=== PATIENT | female | born 1980 | race Caucasian/White ===

== ENCOUNTER → 2016-04-24 | Outpatient (CLI) | payer OTHER ==
[~2016-04-24] MED LIST: PERC5TAB6 PO
[2016-04-24 11:58] LABS: MEAN CORPUSCULAR HEMOGLOBIN 30.4 pg (27.0-33.0); MEAN CORPUSCULAR HGB CONC 35.7 g/dl (32.0-36.5); MEAN CORPUSCULAR VOLUME 85.2 fl (80.0-96.0); RED CELL DISTRIBUTION WIDTH 12.4 % (11.5-14.5); WHITE BLOOD COUNT 7.1 K/mm3 (4.0-10.0)
[2016-04-24 12:06] LABS: ALT/SGPT 14 U/L (12-78); AST/SGOT 18 U/L (15-37); BILIRUBIN,TOTAL 0.5 MG/DL (0.2-1.0); CREATININE FOR GFR 0.77 MG/DL (0.55-1.02); GLOMERULAR FILTRATION RATE > 60.0 (>60); URIC ACID 4.4 MG/DL (2.6-6.0)
== END ==
LOC: M SMT 08:35
PROVIDERS: ATTEND Obstetrics & Gynecology
DX: O16.3 Unspecified maternal hypertension, third trimester (principal); Z3A.00 Weeks of gestation of pregnancy not specified

== ENCOUNTER 2016-05-02 00:15 | Inpatient (IN) | payer OTHER ==
[2016-05-02] VITALS (9 sets, daily range): BP systolic 123–151; BP diastolic 74–97
[~2016-05-02] VITALS: Ht 167.6 cm; Wt 79.0 kg
[2016-05-02] MEDS ORDERED: LR 1,000 ML IV SCH (00:53)
[2016-05-02] MEDS ORDERED: LACTATED RINGER'S 1000 ML IV STA (00:53)
[2016-05-02] MEDS ORDERED: OXYTOCIN 30 UNITS IN 0.9% NaCl 500ML IV BAG (J2590) As Ordered ONE (01:14)
[2016-05-02 01:23] LABS: MEAN CORPUSCULAR HGB CONC 35.3 g/dl (32.0-36.5); MEAN CORPUSCULAR VOLUME 84.9 fl (80.0-96.0); RED CELL DISTRIBUTION WIDTH 13.1 % (11.5-14.5); WHITE BLOOD COUNT 10.6 K/mm3 (4.0-10.0)
[2016-05-02 01:42] LABS: ALT/SGPT 14 U/L (12-78); AST/SGOT 18 U/L (15-37); BILIRUBIN,TOTAL 0.5 MG/DL (0.2-1.0); CREATININE FOR GFR 0.77 MG/DL (0.55-1.02); GLOMERULAR FILTRATION RATE > 60.0 (>60); URIC ACID 4.7 MG/DL (2.6-6.0)
[2016-05-02] MEDS ORDERED: OXYTOCIN DRIP 30 UNITS in APPROPRIATE DILUENT 1 EA IV SCH (02:18)
[2016-05-02] MEDS ORDERED: LIDOCAINE 1% MDV INJ 50 ML VIAL SC ONE (02:30)
[2016-05-02] MEDS ORDERED: DOCUSATE SODIUM 100 MG CAP PO PRN (02:30)
[2016-05-02] MEDS ORDERED: MEASLES,MUMPS,RUBELLA VACCINE INJ (MMR-II) (90707) SC SCH (02:30)
[2016-05-02] MEDS ORDERED: DIBUCAINE 1% OINTMENT 30GM TOP PRN (02:30)
[2016-05-02] MEDS ORDERED: RHOGAM 300 MCG (1500 IU) INJ (J2790) IM SCH (02:30)
[2016-05-02] MEDS: ACETAMINOPHEN 500 MG TAB PO PRN ×2 (03:50→11:48)
[2016-05-02] MEDS: IBUPROFEN 800 MG TAB PO PRN ×2 (03:51→18:00)
--- NOTE | 2016-05-02 07:19 | DN ---
DATE: 05/02/2016 Alondra is a 36-year-old, 3, para 3-0-0-3, who was admitted in transition stage of labor. She arrived to full dilation at 0120. She pushed to a normal spontaneous vaginal delivery of a live male infant in occiput anterior (OA) position with restitution to left occiput transverse (LOT) position at 0127. There was no nuchal cord. The shoulders delivered spontaneously and the corpus immediately followed. The was placed on the maternal abdomen crying and active. His mouth and nares were bulb suctioned. The cord was clamped times two and cut by the maternal grandmother. A spontaneous expulsion of an intact placenta with three-vessel cord by Ingram mechanism was at 0129. Uterine hemostasis was achieved with uterine fundal massage and IV Pitocin rapid infusion. Estimated blood loss 300 mL. Perineum and vagina inspected and noted to have a first-degree midline laceration. The laceration was infiltrated with 1% lidocaine and repaired in the usual fashion with #3-0 Rapide. male weighed 7 pounds 8 ounces, 3414 grams, of 9 and 9. Mom does plan to name her son, John. Mom does plan to breastfeed. At this time, mom and baby are stable and they will be transferred to mother/baby care unit once they are recovered. At the close of delivery, needle counts, instrument counts and lap counts were correct and verified.
--- NOTE | 2016-05-02 07:20 | HPE ---
DATE OF ADMISSION: 05/02/2016 Alondra is a 36-year-old, 3, para 2-0-0-2, at 39-4/7 weeks gestation with an estimated date of confinement (EDC) of 05/06/2016 based on last normal menstrual period and confirmed by first trimester ultrasound. She presents to labor and delivery today with report of jackie throughout the day and they became increasingly uncomfortable around 2230 hours. She reports some scant bloody show. Denies leakage of fluid and fetus has been active. care was initiated at [facility] in the first trimester. course complicated by a right ovarian adnexal cyst that had initially started out at 10.6 cm and reduced down to 5 cm, gestational thrombocytopenia. OBSTETRICAL HISTORY: November 2010, at 37 weeks gestatio, she had a spontaneous delivery for a 4 pound 11 ounce male. She was induced for preeclampsia. September 2012, at 38 weeks gestation, she had a spontaneous vaginal delivery for a 6 pound 3 ounce male. Blood type is B+, antibody screen negative, VDRL immune. Urine culture no growth. Hepatitis B surface antigen negative. HIV negative. Hepatitis C antibody negative. Gonorrhea and Chlamydia negative. She did undergo [place] testing due to advanced maternal age and it was low risk for aneuploidy. Her gestational diabetic screening was 88 and her GBS was negative. She did also undergo a pre-eclamptic profile on 04/24/2016 that returned normal results. She had an isolated elevated blood pressure. PAST MEDICAL HISTORY: Asthma as a young adult. No surgeries. FAMILY HISTORY: Diabetes, hypertension, heart disease and thyroid dysfunction. SOCIAL HISTORY: The patient is to an active duty soldier who is away for training out of state at this time. Her mother is bedside and supportive. She is a nonsmoker. Denies alcohol and drug use. There is no history of any sexually transmitted infections and she denies history of abuse physical, sexual and emotional. ALLERGIES: NO KNOWN DRUG ALLERGIES. CURRENT MEDICATIONS: - vitamins OBJECTIVE: She appears very uncomfortable. Her blood pressure is 142/97. She is alert and oriented times three. Pulse is 103. heart rate upon arrival 130, moderate variability, positive accelerations, no decelerations noted. Jackie every 2-3 minutes. Abdomen is gravid. Estimated weight 7-1/2 pounds. Sterile vaginal exam: 7-8 cm dilated, 90% effaced, -1 station. Membranes are intact with a bulging bag of water. ASSESSMENT: Intrauterine at 39-4/7 weeks, active labor. heart rate category 1. PLAN: Admit patient to labor and delivery. Labs, including a pre-eclamptic profile. Out of bed ad irasema. Clear liquid diet. The patient does desire an epidural. Will start IV fluid bolus and attempt to oblige patient's request. I do anticipate a normal spontaneous vaginal delivery very shortly.
[2016-05-02] MEDS: PRENATAL VITAMIN TAB PO SCH (09:05)
[2016-05-03] MEDS: ACETAMINOPHEN 500 MG TAB PO PRN (04:45)
[2016-05-03 05:42] VITALS: BP 143/79
[2016-05-03] MEDS: PRENATAL VITAMIN TAB PO SCH (07:32)
[2016-05-03] MEDS ORDERED: IBUP-1114 PO (11:27)
[2016-05-03] MEDS ORDERED: ACET50TA PO (11:27)
[2016-05-03] MEDS: IBUPROFEN 800 MG TAB PO PRN (11:56)
== END 2016-05-03 14:35 | disposition home or self-care (01) | DRG 775 ==
LOC: M LDO 00:15 → M LDI 00:51 → M OBS 03:55
PROVIDERS: ADMIT Advanced Practice Midwife; ATTEND Advanced Practice Midwife
PROC: 10E0XZZ Delivery of Products of Conception, External Approach (ICD-10-PCS; principal; 2016-05-02)
PROC: 0HQ9XZZ Repair Perineum Skin, External Approach (ICD-10-PCS; 2016-05-02)
DX: O70.0 First degree perineal laceration during delivery (principal); Z3A.39 39 weeks gestation of pregnancy; Z37.0 Single live birth

== ENCOUNTER → 2016-06-19 | Outpatient (CLI) | payer OTHER ==
[~2016-06-19] MED LIST changes: +ACET50TA PO; +IBUP-1114 PO
--- NOTE | 2016-06-19 11:53 | REP ---
PELVIC ULTRASOUND: Real-time sonographic evaluation of the pelvis is performed utilized transabdominal technique. Bladder measures 12.2 x 6.9 x 10.4 cm. Uterus measures 8.6 x 4.0 x 7.7 cm. Endometrial stripe measures 5 mm. Uterus is retroverted. Right ovary measures 3.0 x 1.7 x 2.9 cm and left ovary 4.3 x 1.9 x 3.4 cm. The previously noted large complex cyst of the right ovary is no longer visualized. A dominant follicle in the right ovary measures 1.7 cm in diameter. IMPRESSION: Previously noted complex cyst of the right ovary has resolved. Signed by Canelo Edward MD 06/20/2016 04:35 P
== END ==
LOC: M RAD 09:51
PROVIDERS: ATTEND Obstetrics & Gynecology
DX: N83.299 Other ovarian cyst, unspecified side (principal)